=== PATIENT | female | born 2000 | race Caucasian/White ===

== ENCOUNTER 2019-12-15 17:39 | Emergency (ER) | payer BC, OTHER ==
[~2019-12-15] VITALS: Ht 167.6 cm; Wt 72.6 kg
[2019-12-15] MEDS ORDERED: ENBRACE HR SOF1 EACH PO (17:49)
[2019-12-15] MEDS ORDERED: KEFLEX500 M1 PO (19:48)
[2019-12-15 20:01] VITALS: BP 120/65
== END 2019-12-15 20:01 | disposition home or self-care (01) ==
LOC: M.ERS 17:39
DX: E86.0 Dehydration (principal)